=== PATIENT | female | born 1995 | race Caucasian/White ===

== ENCOUNTER 2022-02-23 11:08 | Outpatient (CLI) | payer MEDICAID, SELFPAY ==
[2022-02-28 21:29] LABS: Progesterone 18.2 ng/mL (***)
== END 2022-02-23 11:09 | disposition home or self-care (01) ==
PROVIDERS: Visit Provider Obstetrics & Gynecology
DX: N91.2 Amenorrhea, unspecified (principal)
CPT/HCPCS: 36415; 84144; 84702

== ENCOUNTER 2022-03-07 18:49 | Emergency (ER) | payer SELFPAY ==
[2022-03-07 18:56] VITALS: BP 115/55; PULSE 91; RESP 18; TEMP 36.8; O2SAT 100
--- NOTE | 2022-03-07 20:13 | PC.NURSE ---
patient called to place in exam room without response.
== END 2022-03-07 22:24 | disposition left against medical advice (07) ==
LOC: ANHED 21:14
PROVIDERS: PCP Obstetrics & Gynecology
DX: R11.0 Nausea (principal)
CPT/HCPCS: 99199